=== PATIENT | male | born 1930 | race Caucasian/White ===

== ENCOUNTER 2017-04-05 03:46 | Inpatient (IN) ==
--- NOTE | 2017-03-31 12:56 | EKG Report ---
Test Performed on : 03/31/2017 12:45:57 PM Test Reason : PAT Blood Pressure : / mmHG Vent. Rate : 069 BPM Atrial Rate : 069 BPM P-R Int : 148 ms QRS Dur : 098 ms QT Int : 396 ms P-R-T Axes : 010 -26 003 degrees QTc Int : 424 ms Normal sinus rhythm. Incomplete right bundle branch block Minimal voltage criteria for LVH, may be normal variant Borderline ECG No previous ECGs available Confirmed by John Armas MD ([id number]) on 04/01/2017 7:03:23 AM
[2017-03-31 13:08] LABS: MANUAL DIFF NEEDED? NO; URINE SOURCE CLEAN CATCH
[2017-03-31 13:20] LABS: BASO% 0.5 % (0.0-0.8); EOS# 0.34 X1000 (0.0-0.7); EOS% 3.5 % (0.0-10.0); HEMATOCRIT 41.1 % (42.0-52.0); HEMOGLOBIN 14.1 g/dL (14.0-18.0); IMM GRAN# 0.03 X1000 (0.0-0.04); IMM GRAN% 0.3 % (0.0-0.5); LYMPH% 19.8 % (20.5-51.1); MCHC 34.3 g/dL (33-37); MCV 96.3 FL (81-99); MONO# 0.79 X1000 (0.11-0.59); MONO% 8.2 % (1.7-9.3); MPV 12.7 FL (7.4-10.4); NEUT% 67.7 % (42.2-75.2); PLT 202 X1000 (130-400); RBC 4.27 XMIL (4.7-6.1)
[2017-03-31 13:22] LABS: BILIRUBIN URINE NEGATIVE (NEGATIVE); BLOOD URINE NEGATIVE (NEGATIVE); COLOR YELLOW; GLUCOSE URINE NEGATIVE (NEGATIVE); LEUKOCYTES URINE SMALL (NEGATIVE); NITRITE URINE NEGATIVE (NEGATIVE); PH URINE 5.5; TURBIDITY URINE CLEAR (CLEAR); UROBILINOGEN URINE NORMAL (NORMAL)
[2017-03-31 13:30] LABS: PROTIME 10.5 Seconds (9.2-11.7); PTT 25.2 Seconds (22.0-36.0)
[2017-03-31 13:38] LABS: PROTEIN URINE TRACE mg/dL (NEGATIVE); SP GRAVITY URINE 1.027
[2017-03-31 13:41] LABS: URINE MICRO REVIEW NEEDED? YES
[2017-03-31 14:01] LABS: AGAP 13; BUN 23 mg/dL (8-22); CALCIUM 9.3 mg/dL (8.8-10.2); CHLORIDE 101 mmol/L (98-107); COSMO 286; POTASSIUM 4.2 mmol/L (3.5-5.1); SODIUM 138 mmol/L (136-145); TCO2 24 mmol/L (25-35)
[2017-03-31 14:06] LABS: UR EPITHELIAL CELLS <10 /HPF (<10); URINE BACTERIA NEGATIVE /HPF; URINE RBC <10 /HPF (<10)
[2017-04-05] MEDS ORDERED: REGLAN ONE (11:48)
[2017-04-05] MEDS ORDERED: LYRICA ONE (11:48)
[2017-04-05] MEDS ORDERED: PEPCID ONE (11:48)
[2017-04-05] MEDS ORDERED: COLACE ONE (11:48)
[2017-04-05] MEDS ORDERED: LR 1,000 ML ONE (11:49)
[2017-04-05] MEDS ORDERED: KEFZOL 1 GM/D5W 1 GM/50 ML IVPB ONE (11:49)
[2017-04-05] MEDS ORDERED: CELEBREX ONE (11:49)
[2017-04-05] MEDS ORDERED: MARCAINE 0.25% PF/EPI 1:200,000 ONE (13:53)
[2017-04-05] MEDS ORDERED: TORADOL ONE (13:53)
[2017-04-05] MEDS ORDERED: NEOSPORIN G.U. IRRIGANT ONE (13:54)
[2017-04-05] MEDS ORDERED: SODIUM CHLORIDE 0.9% ONE (13:54)
[2017-04-05] MEDS ORDERED: CYKLOKAPRON 1,000 MG/NS 1,000 MG/100 ML IVPB ONE (13:54)
[2017-04-05] MEDS ORDERED: EXPAREL 1.3% ONE (13:54)
[2017-04-05 15:15] LABS: URINE SOURCE CATH
[2017-04-05 15:20] LABS: BILIRUBIN URINE NEGATIVE (NEGATIVE); BLOOD URINE NEGATIVE (NEGATIVE); COLOR YELLOW; GLUCOSE URINE NEGATIVE (NEGATIVE); LEUKOCYTES URINE SMALL (NEGATIVE); NITRITE URINE NEGATIVE (NEGATIVE); PH URINE 6.5; PROTEIN URINE NEGATIVE (NEGATIVE); SP GRAVITY URINE 1.021; TURBIDITY URINE CLEAR (CLEAR); UROBILINOGEN URINE NORMAL (NORMAL)
[2017-04-05 15:21] LABS: URINE MICRO REVIEW NEEDED? YES
[2017-04-05 15:23] LABS: UR EPITHELIAL CELLS <10 /HPF (<10); URINE BACTERIA 1+ /HPF; URINE RBC <10 /HPF (<10)
[2017-04-05 15:41] LABS: URINE CASTS NONE SEEN; URINE CRYSTALS NONE SEEN
[2017-04-05] MEDS ORDERED: DIPRIVAN 1% ONE (16:44)
[2017-04-05] MEDS ORDERED: FENTANYL ONE (16:44)
[2017-04-05] MEDS: NS 1,000 ML IV SCH (17:00)
[2017-04-05] MEDS ORDERED: NS 1,000 ML ONE (17:02)
[2017-04-05] MEDS ORDERED: MILK OF MAGNESIA PO PRN (17:30)
[2017-04-05] MEDS ORDERED: AMBIEN PO PRN (17:30)
[2017-04-05] MEDS ORDERED: ZOFRAN IV PRN (17:30)
[2017-04-05] MEDS ORDERED: MORPHINE IV PRN (17:30)
[2017-04-05] MEDS: TYLENOL PO SCH (18:09)
[2017-04-05] MEDS: ULTRAM PO SCH (18:09)
[2017-04-05] MEDS ORDERED: PNEUMOVAX 23 IM ONE (19:30)
[2017-04-05] MEDS: CELEBREX PO SCH (20:23)
[2017-04-05] MEDS: PROSCAR PO SCH (20:23)
[2017-04-05] MEDS: COLACE PO SCH (20:23)
[2017-04-05] MEDS: LYRICA PO SCH (20:23)
[2017-04-05] MEDS: FLOMAX PO SCH (20:23)
[2017-04-05] MEDS: PERIDEX MT SCH (20:23)
[2017-04-05] MEDS: TENORMIN PO SCH (20:23)
[2017-04-05] MEDS: NORVASC PO SCH (20:23)
[2017-04-05] MEDS: MYRBETRIQ E.R. PO SCH (20:28)
[2017-04-05] MEDS ORDERED: CYKLOKAPRON 1,000 MG in NS 100 ML IV ONE (20:30)
[2017-04-05] MEDS: KEFZOL 2 GM/D5W 2 GM/50 ML IVPB IV SCH (22:08)
--- NOTE | 2017-04-05 22:32 | OPERATIVE NOTE ---
PROCEDURE DATE: 04/05/2017 PREOPERATIVE DIAGNOSIS: Right hip degenerative joint disease. POSTOP DIAGNOSIS: Right hip degenerative joint disease. PROCEDURE: Right hip total hip arthroplasty using a [facility] size 13 stem with a +0, 36 mm head, a 52 mm hemispherical shell with a 32 mm inside diameter acetabular liner. ANESTHESIA: General. SURGEON: Matthew Shah MD. GUM ROLLING MACHINE TENDER: Toni. SECOND GUM ROLLING MACHINE TENDER: JOVAN Sosa. COMPLICATIONS: None. BLOOD LOSS: Minimal. DRAINS: Hemovac x1 description. DESCRIPTION OF PROCEDURE: The patient was brought to the operative suite and placed in supine position. After successful administration of general anesthesia, the patient placed on the OSI table in the usual position for right hip then right hip was prepped and draped in the usual sterile fashion. A longitudinal incision made beginning 2 cm distal and 2 cm lateral to anterior superior iliac spine extending distally and slightly laterally 8 cm. It is dissected sharply through the skin down to the tensor fascia. Tensor fascia was incised and then dissected bluntly down to the deep tensor fascia, deep tensor fascia was incised, circumflex vessels were electrocauterized exposing the anterior capsule. A T-capsulotomy was performed exposing femoral neck. Femoral neck cut was made with oscillating saw, femoral head was removed power corkscrew. Labrum was resected and calcified labrum was removed with rongeur. Acetabulum serially reamed to a 52 to accept 52 cup. The 52 cup was then driven into place in the proper amount inclination, anteversion and then attention was directed to femur. The femur was externally rotated, extended, adducted and elevated out of the way with hook on OSI bed. The lateral neck was rongeured and the canal was serially broached to a size 13, a size 13 high offset +0 neck length was trialed found be excellent leg length, offset and stability the hip. The trial was removed. Definitive stem was seated on the femur and then the Pires taper was cleaned and dried and then the ceramic 36 mm head was locked on the Pires taper and was reduced. Excellent placement the hip was obtained and fit and fill of the stem was excellent, the offset and leg lengths were excellent as well. The wound was copiously irrigated and dried being certain all bone debris was removed. The hip was copiously infiltrated with Exparel including the posterior capsule, anterior capsule, anterior musculature and subcutaneous tissue. The anterior capsule was repaired with 0 V-Loc running suture and then the drain was placed deep to tensor fascia buried around the stem neck exiting distally and slightly laterally and then the tensor fascia was closed with running 3-0 V-Loc suture, skin edge approximated with 2-0 Vicryl, skin was closed with Prineo. A sterile dressing was placed around the drain. The patient tolerated the procedure well without complication. At the end the procedure all counts correct x2. The patient transferred to recovery room stable condition. cc: Matthew Shah MD
[2017-04-06] MEDS: TYLENOL PO SCH ×4 (04:41→18:09)
[2017-04-06] MEDS: ULTRAM PO SCH ×3 (04:43→18:10)
[2017-04-06] MEDS: NS 1,000 ML IV SCH ×2 (04:43→13:38)
[2017-04-06 05:38] LABS: HEMATOCRIT 33.9 % (42.0-52.0); HEMOGLOBIN 11.4 g/dL (14.0-18.0)
[2017-04-06 05:48] LABS: AGAP 14; BUN 24 mg/dL (8-22); CALCIUM 8.2 mg/dL (8.8-10.2); CHLORIDE 104 mmol/L (98-107); COSMO 284; POTASSIUM 4.7 mmol/L (3.5-5.1); SODIUM 137 mmol/L (136-145); TCO2 19 mmol/L (25-35)
[2017-04-06] MEDS: KEFZOL 2 GM/D5W 2 GM/50 ML IVPB IV SCH (06:20)
[2017-04-06] MEDS: PRILOSEC PO SCH (06:20)
[2017-04-06] MEDS: XARELTO PO SCH (06:20)
[2017-04-06] MEDS ORDERED: OFIRMEV 1000 MG/ISOTONIC SOLN 1,000 MG/100 ML BOTTLE ONE (07:14)
[2017-04-06] MEDS ORDERED: ZOFRAN ONE (07:14)
[2017-04-06] MEDS ORDERED: LR 1,000 ML ONE (07:14)
[2017-04-06] MEDS ORDERED: DECADRON ONE (07:14)
[2017-04-06] MEDS ORDERED: XYLOCAINE-MPF 2% ONE (07:14)
[2017-04-06] MEDS ORDERED: NEO-SYNEPHRINE ONE (07:14)
[2017-04-06] MEDS ORDERED: NS 250 ML ONE (07:14)
[2017-04-06] MEDS ORDERED: EPHEDRINE ONE (07:14)
[2017-04-06] MEDS: PERIDEX MT SCH ×2 (08:02→21:29)
[2017-04-06] MEDS: JANUVIA PO SCH (08:02)
[2017-04-06] MEDS: CELEBREX PO SCH ×2 (08:03→21:30)
[2017-04-06] MEDS: OSCAL 500 + D PO SCH (08:03)
[2017-04-06] MEDS: LYRICA PO SCH ×2 (08:03→21:33)
[2017-04-06] MEDS: IMDUR PO SCH (08:03)
[2017-04-06] MEDS: MICARDIS PO SCH (08:03)
[2017-04-06] MEDS: CENTRUM SILVER PO SCH (08:03)
[2017-04-06] MEDS: COLACE PO SCH ×2 (08:05→21:30)
[2017-04-06] MEDS: CYMBALTA PO SCH (08:05)
[2017-04-06] MEDS: GLUCOPHAGE PO SCH ×2 (08:05→18:11)
[2017-04-06] MEDS: OXY IR PO PRN ×3 (08:26→21:33)
--- NOTE | 2017-04-06 08:26 | PROGRESS NOTE ---
DATE: 04/06/2017 SUBJECTIVE: Shelton Ling is an 87-year-old male who is postoperative day 1 from a right anterior total hip arthroplasty. He has no complaints. OBJECTIVE: He is a well-nourished male. He is alert, oriented, and cooperative on exam. His vital signs are stable. He is afebrile. His wound is clean, dry, intact. ASSESSMENT: Stable postoperative visit from a right total hip arthroplasty. PLAN: Will continue working on physical therapy with him. He will likely go to rehab later in the week. cc: Matthew Shah MD
[2017-04-06] MEDS ORDERED: DECADRON IV ONE (09:00)
[2017-04-06] MEDS: FLOMAX PO SCH (21:30)
[2017-04-06] MEDS: MYRBETRIQ E.R. PO SCH (21:30)
[2017-04-06] MEDS: NORVASC PO SCH ×2 (21:30)
[2017-04-06] MEDS: TENORMIN PO SCH ×2 (21:30)
[2017-04-06] MEDS: PROSCAR PO SCH (21:34)
[2017-04-07] MEDS: ULTRAM PO SCH ×4 (04:58→21:00)
[2017-04-07] MEDS: TYLENOL PO SCH ×4 (04:59→23:23)
[2017-04-07 06:01] LABS: HEMATOCRIT 25.5 % (42.0-52.0); HEMOGLOBIN 8.4 g/dL (14.0-18.0)
[2017-04-07] MEDS: PRILOSEC PO SCH (06:17)
[2017-04-07] MEDS: XARELTO PO SCH (06:18)
[2017-04-07] MEDS: JANUVIA PO SCH (09:50)
[2017-04-07] MEDS: CELEBREX PO SCH ×2 (09:50→23:23)
[2017-04-07] MEDS: GLUCOPHAGE PO SCH ×2 (09:50→17:02)
[2017-04-07] MEDS: LYRICA PO SCH (09:50)
[2017-04-07] MEDS: PERIDEX MT SCH ×2 (09:50→23:22)
[2017-04-07] MEDS: IMDUR PO SCH (09:50)
[2017-04-07] MEDS: OXY IR PO PRN (09:50)
[2017-04-07] MEDS: COLACE PO SCH ×2 (09:50→23:23)
[2017-04-07] MEDS: OSCAL 500 + D PO SCH (09:51)
[2017-04-07] MEDS: CENTRUM SILVER PO SCH (09:51)
[2017-04-07] MEDS: CYMBALTA PO SCH (09:51)
[2017-04-07] MEDS: MICARDIS PO SCH (09:51)
--- NOTE | 2017-04-07 13:12 | PROGRESS NOTE ---
DATE: 04/07/2017 SUBJECTIVE: Shelton Ling is am 87-year-old male who is postoperative day 2 from a right anterior total hip arthroplasty. He complains of increased pain today but otherwise is doing well. OBJECTIVE: He is a well-developed, well-nourished male. He is alert and cooperative. His wound is clean, dry, intact without sign of infection. His leg is neurovascularly intact. ASSESSMENT: Stable right total hip arthroplasty. PLAN: We will continue working on range of motion and ambulation. He will likely go to rehab tomorrow. cc: Matthew Shah MD
[2017-04-07] MEDS: NORVASC PO SCH (21:00)
[2017-04-07] MEDS: TENORMIN PO SCH (21:00)
[2017-04-07] MEDS: MYRBETRIQ E.R. PO SCH (23:23)
[2017-04-07] MEDS: PROSCAR PO SCH (23:23)
[2017-04-07] MEDS: FLOMAX PO SCH (23:23)
[2017-04-08] MEDS: LYRICA PO SCH ×3 (04:31→22:03)
[2017-04-08 06:03] LABS: HEMATOCRIT 22.7 % (42.0-52.0); HEMOGLOBIN 7.5 g/dL (14.0-18.0)
[2017-04-08] MEDS: TYLENOL PO SCH ×4 (06:25→23:21)
[2017-04-08] MEDS: XARELTO PO SCH (06:26)
[2017-04-08] MEDS: PRILOSEC PO SCH (06:26)
[2017-04-08] MEDS: ULTRAM PO SCH ×4 (06:26→23:22)
--- NOTE | 2017-04-08 09:20 | PROGRESS NOTE ---
DATE: 04/08/2017 SUBJECTIVE: Mr. Ling is a 89-year-old male, who is postoperative day 3 from a right anterior total hip arthroplasty. He complains of weakness and low energy, but otherwise he is doing well. OBJECTIVE: He is well developed, well nourished male. He is alert and cooperative with the exam. His conjunctiva is noted to be slightly pale. His wound is clean, dry, and intact without signs of infection. His leg is neurovascularly intact. His hemoglobin is 9.5, his hematocrit is 22.7. ASSESSMENT: Stable right total hip arthroplasty and anemia. PLAN: We will transfuse 2 units of packed red blood cells and we will continue working on range of motion and ambulation. He will likely go to rehab tomorrow, pending the status of his anemia. Dictated by CHRISTOPHER De Souza for Matthew Shah MD cc: CHRISTOPHER De Souza MD
[2017-04-08] MEDS: GLUCOPHAGE PO SCH ×2 (11:54→18:33)
[2017-04-08] MEDS: JANUVIA PO SCH (11:54)
[2017-04-08] MEDS: CELEBREX PO SCH ×2 (11:54→22:04)
[2017-04-08] MEDS: CENTRUM SILVER PO SCH (11:54)
[2017-04-08] MEDS: OSCAL 500 + D PO SCH (11:54)
[2017-04-08] MEDS: COLACE PO SCH ×2 (11:54→22:04)
[2017-04-08] MEDS: IMDUR PO SCH (11:55)
[2017-04-08] MEDS: MICARDIS PO SCH (11:55)
[2017-04-08] MEDS: CYMBALTA PO SCH (11:55)
[2017-04-08] MEDS ORDERED: NS 500 ML ONE (12:24)
[2017-04-08] MEDS: PERIDEX MT SCH ×2 (12:40→22:05)
[2017-04-08] MEDS: NORVASC PO SCH (22:03)
[2017-04-08] MEDS: FLOMAX PO SCH (22:04)
[2017-04-08] MEDS: MYRBETRIQ E.R. PO SCH (22:04)
[2017-04-08] MEDS: PROSCAR PO SCH (22:04)
[2017-04-08] MEDS: TENORMIN PO SCH (22:05)
[2017-04-09] MEDS: ULTRAM PO SCH (06:11)
[2017-04-09] MEDS: XARELTO PO SCH (06:14)
[2017-04-09] MEDS: PRILOSEC PO SCH (06:14)
[2017-04-09] MEDS: TYLENOL PO SCH (06:14)
[2017-04-09 08:24] VITALS: BP 125/63
--- NOTE | 2017-04-09 08:32 | DISCHARGE SUMMARY ---
ADMISSION DATE: 04/05/2017 DISCHARGE DATE: 04/09/2017 DISCHARGE DIAGNOSES: 1. Right hip degenerative joint disease. 2. Status post right anterior total hip arthroplasty. 3. Acute blood loss anemia. DISCHARGE MEDICATIONS: See discharge medication list. DISPOSITION: Patient discharged to rehab. INSTRUCTIONS: Instructions for a right total hip arthroplasty protocol. Instructed to return for any signs or symptoms of infection, deep venous thrombosis. Instructed to return to see Dr. Shah next . HOSPITAL COURSE: On the day of admission, the patient underwent a right anterior total hip arthroplasty. His postoperative course was complicated only by acute blood loss anemia treated with transfusion x 2. At discharge he is afebrile, tolerating regular diet, ambulating well in physical therapy. His wound is clean, dry, intact without sign of infection. He is discharged to rehab in stable condition with instructions to follow up as described above. cc: Matthew Shah MD [facility]
[2017-04-09] MEDS: COLACE PO SCH (08:52)
[2017-04-09] MEDS: GLUCOPHAGE PO SCH (08:53)
[2017-04-09] MEDS: CELEBREX PO SCH (08:53)
[2017-04-09] MEDS: MICARDIS PO SCH (08:53)
[2017-04-09] MEDS: CYMBALTA PO SCH (08:53)
[2017-04-09] MEDS: IMDUR PO SCH (08:53)
[2017-04-09] MEDS: PERIDEX MT SCH (08:54)
[2017-04-09] MEDS: OSCAL 500 + D PO SCH (08:54)
[2017-04-09] MEDS: JANUVIA PO SCH (08:54)
[2017-04-09] MEDS: CENTRUM SILVER PO SCH (08:54)
--- NOTE | 2017-04-09 10:09 | Diag Imaging Result Doc PS360 ---
EXAM: CHEST-PORTABLE INDICATION: rehab TECHNIQUE: One view COMPARISON: None. FINDINGS: The lungs are grossly clear. There is no discrete pleural fluid collection. The cardiomediastinal silhouette and central vasculature are grossly unremarkable. IMPRESSION: No evidence of acute pathology. Electronically signed by Micah Florian 04/09/2017 10:07 AM
== END 2017-04-09 11:10 ==
LOC: SURHOLD 03:46 → 4N 16:04
PROVIDERS: ADMIT Orthopaedic Surgery; ATTEND Orthopaedic Surgery

== ENCOUNTER 2019-03-29 07:06 | Day surgery (SDC) ==
[2019-03-22 15:53] LABS: HEMATOCRIT 36.3 % (42.0-52.0); HEMOGLOBIN 12.2 g/dL (14.0-18.0); MCHC 33.6 g/dL (33-37); MCV 95.3 FL (81-99); MPV 12.9 FL (7.4-10.4); RBC 3.81 XMIL (4.7-6.1); RDW 13.8 % (11.5-14.5); WBC 8.7 X1000 (4.8-10.8)
[2019-03-22 16:13] LABS: INR 0.95; PROTIME 13.5 Seconds (11.0-16.0)
[2019-03-22 16:14] LABS: PTT 25.7 Seconds (22.3-41.8)
[2019-03-22 16:42] LABS: CREATININE 1.2 mg/dL (0.7-1.2); POTASSIUM 4.1 mmol/L (3.5-5.1)
--- NOTE | 2019-03-28 18:56 | HISTORY AND PHYSICAL ---
HISTORY OF PRESENT ILLNESS: This is an 89-year-old male with a long-standing history of BPH, who went into urinary retention. He has been on finasteride and Flomax, as well as trospium. He has attempted to pass a voiding trial and failed so. He underwent cystoscopy on 03/22/2019 which revealed significant prostatic hypertrophy with obstruction. He was counseled on chronic Neri catheter intermittent catheterization versus TURP and wants to proceed with definitive intervention. PAST MEDICAL HISTORY: Hypertension, BPH, coronary artery disease, diabetes, GERD, neuropathy. PAST SURGICAL HISTORY: Shoulder surgery, elbow surgery, back surgery. HOME MEDICATIONS: Aspirin, atenolol, Cymbalta, finasteride, Flomax, ISMN, Januvia, Lyrica, metformin, [place], Norvasc, omeprazole, telmisartan. ALLERGIES: No known drug allergies. SOCIAL HISTORY: Denies tobacco, alcohol, or illicit drug use. FAMILY HISTORY: Negative for malignancies. PHYSICAL EXAMINATION: GENERAL: No acute distress. HEENT: Normocephalic, atraumatic. CARDIOVASCULAR: Regular rhythm. PULMONARY: Bilateral breath sounds. ABDOMEN: Nontender, nondistended. : Normal external male genitalia. ASSESSMENT: This is an 89-year-old male with significant benign prostatic hypertrophy, who has been in urinary retention despite medical therapy. He again was counseled on alternatives including observation, indwelling Neri catheter, intermittent self catheterization, suprapubic tube, and TURP. He wants to proceed with bipolar transurethral resection of the prostate. He was counseled on the risks of the procedure including, but not limited to, bleeding, infection, injury to adjacent structures, persistent urinary retention, small risk of postoperative urinary incontinence, and risk of erectile dysfunction, as well as long-term complications such as bladder neck contracture. We discussed that he may have prostatic regrowth and need further intervention in the future. He voiced understanding and wants to proceed. PLAN: Bipolar transurethral resection of the prostate. cc: Israel Tay MD
[2019-03-29] MEDS ORDERED: LR 1,000 ML ONE (07:28)
[2019-03-29] MEDS ORDERED: KEFZOL 1 GM/D5W 2 GM/100 ML IVPB ONE (07:28)
[2019-03-29] MEDS ORDERED: PEPCID ONE (07:28)
--- NOTE | 2019-03-29 08:07 | EKG Report ---
Test Performed on : 03/29/2019 07:27:04 AM Test Reason : PREOP Blood Pressure : / mmHG Vent. Rate : 099 BPM Atrial Rate : 099 BPM P-R Int : 130 ms QRS Dur : 076 ms QT Int : 332 ms P-R-T Axes : 007 -32 036 degrees QTc Int : 426 ms Normal sinus rhythm. Left axis deviation Abnormal ECG When compared with ECG of 26-APR-2017 16:59, No significant change was found Confirmed by Golden FAN, Patric Pepe ([id number]) on 03/29/2019 10:23:54 AM
[2019-03-29] MEDS ORDERED: DIPRIVAN 1% ONE (09:31)
[2019-03-29] MEDS ORDERED: XYLOCAINE-MPF 2% ONE (09:32)
[2019-03-29] MEDS ORDERED: FENTANYL ONE ×2 (09:32→10:39)
[2019-03-29] MEDS ORDERED: OFIRMEV 1000 MG/ISOTONIC SOLN 1,000 MG/100 ML BOTTLE ONE (10:07)
[2019-03-29] MEDS ORDERED: LOPRESSOR ONE (10:20)
[2019-03-29] MEDS ORDERED: TORADOL ONE (10:41)
[2019-03-29] MEDS ORDERED: ZOFRAN ONE (10:41)
[2019-03-29] MEDS ORDERED: B & O 15A SUPP ONE (12:22)
[2019-03-29] MEDS ORDERED: NS 1,000 ML ONE (12:45)
[2019-03-29] MEDS ORDERED: MORPHINE IV PRN (12:58)
[2019-03-29] MEDS ORDERED: NORCO-5 PO PRN (13:00)
[2019-03-29] MEDS ORDERED: LABETALOL IV PRN (13:00)
[2019-03-29] MEDS ORDERED: ZOFRAN IV PRN (13:00)
[2019-03-29] MEDS ORDERED: PHENERGAN IV PRN (13:00)
[2019-03-29] MEDS ORDERED: NORCO-7.5 PO PRN (13:00)
[2019-03-29] MEDS ORDERED: SODIUM CHLORIDE 0.9% INJ PRN (13:00)
[2019-03-29] MEDS ORDERED: PHENERGAN PO PRN (13:00)
[2019-03-29] MEDS ORDERED: NORCO-10 PO PRN (13:00)
[2019-03-29] MEDS ORDERED: OFIRMEV 1000 MG/ISOTONIC SOLN 1,000 MG/100 ML BOTTLE IV PRN (13:00)
[2019-03-29] MEDS: NS 1,000 ML IV SCH ×2 (13:45→18:40)
[2019-03-29] MEDS ORDERED: D50W SYRINGE IV PRN (14:15)
[2019-03-29] MEDS: HUMALOG SUBQ SCH ×2 (16:13→21:19)
[2019-03-29] MEDS ORDERED: KEFZOL 2 GM/D5W 2 GM/50 ML IVPB IV SCH ×2 (17:45→18:30)
[2019-03-29] MEDS: GLUCOPHAGE PO SCH (18:11)
[2019-03-29] MEDS: ULTRAM PO SCH ×2 (18:11→21:17)
[2019-03-29] MEDS: KEFZOL 2 GM/D5W 2 GM/50 ML IVPB IV SCH (18:38)
--- NOTE | 2019-03-29 19:56 | PROGRESS NOTE ---
DATE: 03/29/2019 SUBJECTIVE: Mr. Ling states he is feeling well. He has had a bladder spasm which has subsided with tramadol. He denies significant pain. PHYSICAL EXAMINATION: Vital Signs: His pulse is 76, his BP is 156/85. General: No acute distress. Abdomen: Nontender, nondistended. Genitourinary: Neri catheter in place with continuous bladder irrigation. Very light pink urine without clots noted. ASSESSMENT AND PLAN: An 89-year-old male with urinary retention and significant BPH, who is status post transurethral resection of the prostate with bipolar loop today. He is doing well. His son is present at bedside. I have discussed with the patient postoperative expectations including blood in his urine for up to 2 weeks. We discussed hydration. We discussed that he may not pass voiding trial tomorrow and may require catheter for several days prior to another voiding trial. I have advised that he discontinue finasteride and trospium, and continue Flomax 0.4 mg at bedtime just for 7 days in order to help decrease postoperative edema. I have advised today restart his aspirin 3 days after discharge on 04/02/2019. PLAN: 1. Continue decreasing bladder irrigation rate. 2. If no acute events overnight, we will plan to remove Neri catheter tomorrow 6 a.m. and discharge home pending successful voiding and acceptable postvoid residual less than 300 mL. 3. I have discussed the patient with my colleague Dr. Carvajal who will round him in the morning as I will not be available. cc: Israel Tay MD
[2019-03-29] MEDS ORDERED: FLOMAX PO SCH (21:00)
[2019-03-29] MEDS: LYRICA PO SCH (21:17)
[2019-03-29] MEDS: PERIDEX MT SCH (21:17)
[2019-03-29] MEDS: COLACE PO SCH (21:18)
[2019-03-30] MEDS: KEFZOL 2 GM/D5W 2 GM/50 ML IVPB IV SCH ×2 (02:40→10:13)
[2019-03-30] MEDS: NS 1,000 ML IV SCH (03:10)
[2019-03-30] MEDS: ULTRAM PO SCH ×2 (05:02→10:13)
[2019-03-30 06:38] LABS: HEMOGLOBIN 11.3 g/dL (14.0-18.0); MCH 31.9 PG (27-31); MCHC 33.2 g/dL (33-37); MPV 12.6 FL (7.4-10.4); RBC 3.54 XMIL (4.7-6.1); RDW 13.6 % (11.5-14.5); WBC 9.22 X1000 (4.8-10.8)
[2019-03-30 07:07] LABS: AGAP 13; BUN 20 mg/dL (8-22); CALCIUM 7.8 mg/dL (8.8-10.2); CHLORIDE 107 mmol/L (98-107); COSMO 283; CREATININE 0.9 mg/dL (0.7-1.2); ESTIMATED GFR > 60; GLUCOSE 123 mg/dL (70-104); POTASSIUM 3.7 mmol/L (3.5-5.1); SODIUM 140 mmol/L (136-145); TCO2 20 mmol/L (25-35)
[2019-03-30] MEDS ORDERED: GLUCOTROL PO SCH (08:00)
[2019-03-30 08:09] VITALS: BP 133/88
[2019-03-30] MEDS ORDERED: PRILOSEC PO SCH (09:00)
[2019-03-30] MEDS ORDERED: COZAAR PO SCH (09:00)
[2019-03-30] MEDS ORDERED: CYMBALTA PO SCH (09:00)
--- NOTE | 2019-03-30 09:42 | PROGRESS NOTE ---
DATE: 03/30/2019 SUBJECTIVE: Postop day 1 from cystoscopy, transurethral resection of prostate by Dr. Tay. The patient has been doing well overnight. His CBI was weaned off. His catheter was removed this morning. The patient has not voided yet. He is having minimal to no pain. Denies any dysuria or burning. He said he slept relatively well. He was awoken several times by nursing, but does not feel overly fatigued. Denies nausea or vomiting. Tolerating p.o. intake last night. OBJECTIVE: Vital signs: Temperature 99.1 degrees, heart rate 88, blood pressure 107/68, oxygen saturation 98% on 1 L nasal cannula. General: No acute distress, resting on the bed. Alert and oriented x3. Respiratory: Good respiratory effort without audible wheezing or rales. Nasal cannula in place with no shortness of breath. Abdomen: Soft, nontender, nondistended. No palpable masses. Genitourinary: No suprapubic tenderness. No CVA tenderness. Normal phallus. Small amount of blood present at the meatus without active drainage. LABORATORY DATA: White blood cell count 9.2, hemoglobin 11.3, hematocrit 34.0, platelets 182,000. Sodium 140, potassium 3.7, chloride 107, bicarb 20, BUN 20, creatinine 0.9, glucose 123. ASSESSMENT AND PLAN: Mr. Ling is an 89-year-old with chronic obstructive pulmonary disease, hypertension, benign prostatic hypertrophy, diabetes, gastroesophageal reflux disease, coronary artery disease, who presents postoperative day 1 from transurethral resection of prostate. The patient did well from an operative standpoint. His catheter was removed this morning and patient is awaiting urination. All his labs are within normal limits with white blood cell count of 9, creatinine 0.9. Clinically appears to be doing well. We will plan for him to have a voiding trial today. Encourage him to remain hydrated. The patient will remain on Flomax 0.4 mg until his current prescription runs out. If the patient is able to void, we will obtain a postvoid residual. As long as this number is low, likely discharge home. Relayed this message to the patient as well as patient's son. Encouraged him to be as ambulatory as possible. Patient does have some limitations due to orthopedic issues. The patient uses a walker at home. If patient is not able to urinate, will have to reinsert catheter and have him follow-up next week in the office. As long as patient meets goals of discharge, we will hopefully be able to discharge later today. cc: MD Israel Duarte MD MTDD
[2019-03-30] MEDS: COLACE PO SCH (10:14)
[2019-03-30] MEDS: GLUCOPHAGE PO SCH (10:14)
[2019-03-30] MEDS: LYRICA PO SCH (10:15)
[2019-03-30] MEDS: PERIDEX MT SCH (10:15)
[2019-03-30] MEDS: HUMALOG SUBQ SCH ×2 (10:32→10:50)
--- NOTE | 2019-04-25 13:33 | OPERATIVE NOTE ---
PROCEDURE DATE: 03/29/2019 SURGEON: Israel Tay MD PREOPERATIVE DIAGNOSIS: 1. Benign prostatic hypertrophy. 2. Urinary retention. POSTOP DIAGNOSIS: 1. Benign prostatic hypertrophy. 2. Urinary retention. PROCEDURE: Bipolar transurethral resection of the prostate with the loop. INDICATIONS: 89-year-old male with longstanding history of BPH, who has been on finasteride and Flomax and went into urinary retention. He had failed voiding trials. He underwent cystoscopy which revealed significant prostatic hypertrophy with obstruction. Now he desires TURP. FINDINGS: Significant bilobar prostatic hypertrophy. DESCRIPTION OF PROCEDURE: After obtaining informed consent, patient brought to the operating room. Perioperative antibiotics and laryngeal mask anesthesia were administered. He was placed in lithotomy position, prepped and draped sterile fashion. A 21-Stateless rigid cystoscope was used to gain access to the bladder, which was then examined systematic fashion. His prostate had significant prostatic hypertrophy with obstruction. His bladder showed moderate trabeculations. No evidence sizable diverticula, no mucosal lesions and no stones noted within the bladder lumen. We removed the cystoscope and introduced a 25-Stateless rigid resectoscope. Bipolar gyrus loop was used to resect the adenoma from the level of bladder neck to the level of the verumontanum 1st at 6 o'clock down to the level of the capsule depth fernandez. We then resected adenoma in a clockwise and counterclockwise fashion. Ellik was used to evacuate the chips which were sent off for pathology. Hemostasis obtained along the way. Repeat examination revealed adequate hemostasis and no evidence of sizable chips remaining. The resectoscope was then removed and a 22-Stateless, 3- way Neri catheter was introduced with 30 mL of sterile water instilled into the balloon. The catheter was placed in gentle traction and connected to continuous bladder irrigation normal saline. The patient was extubated, taken to PACU for further recovery. ESTIMATED BLOOD LOSS: None. COMPLICATIONS: None. SPECIMENS: Prostate chips. DRAINS: 22-Stateless, 3-way Neri catheter. DISPOSITION: To PACU, subsequently floor for observation. cc: Israel Tay MD
== END 2019-03-30 14:27 | disposition home or self-care (01) ==
LOC: OR 07:06 → 4N 07:06 → OR 03-30 14:27
PROVIDERS: ATTEND Urology
PROC: UR.TURP (2019-03-29 09:45)
CPT/HCPCS: 80048; 82948; 85027; 85610; 85730; 88305; 88313; 93005; 93010; 94761; 94799; A9270; J0131; J0690; J1815; J1885; J2405; J3010; J7030; J7120; XXXXX

== ENCOUNTER 2019-04-26 18:02 | Inpatient (IN) ==
[2019-04-26] MEDS ORDERED: NS 500 ML IV ONE (19:20)
--- NOTE | 2019-04-26 20:10 | Diag Imaging Result Doc PS360 ---
EXAM: CHEST-PORTABLE 04/26/2019 HISTORY: ams TECHNIQUE: AP portable at 1949 COMMENT: There are calcifications in the thoracic aorta. There is a skin fold over the left chest. There may be COPD. There are multiple healing rib fractures posteriorly on the right which were not present on 04/26/2017. The heart size and pulmonary vascularity are stable in appearance. IMPRESSION: No evidence of acute disease. Electronically signed by Yury Diaz 04/26/2019 8:07 PM
--- NOTE | 2019-04-26 20:17 | Diag Imaging Result Doc PS360 ---
EXAM: CT HEAD W/O CONTRAST 04/26/2019 HISTORY: ams TECHNIQUE: This exam was performed using automated exposure control, adjustment of mA or kV according to patient size, and/or use of iterative reconstruction technique. COMMENT: There are calcifications in the left vertebral and both internal carotid arteries. There are patchy lucencies in the periventricular white matter of both hemispheres consistent with chronic microvascular ischemic white matter change. There is no evidence of mass effect, bleed, or abnormal extra-axial fluid collection. The calvarium is intact. There is a mucous retention cyst in the left frontal sinus. Otherwise the paranasal sinuses are clear. IMPRESSION: Chronic ischemic microvascular changes. No evidence of acute intracranial disease. Electronically signed by Yury Diaz 04/26/2019 8:15 PM
[2019-04-26 20:20] LABS: BASO# 0.04 X1000 (0.0-0.2); BASO% 0.3 % (0.0-0.8); EOS# 0.23 X1000 (0.0-0.7); EOS% 1.8 % (0.0-10.0); HEMATOCRIT 35.4 % (42.0-52.0); HEMOGLOBIN 12.6 g/dL (14.0-18.0); IMM GRAN# 0.18 X1000 (0.0-0.04); IMM GRAN% 1.4 % (0.0-0.5); LYMPH# 1.29 X1000 (1.2-3.4); LYMPH% 10.4 % (20.5-51.1); MCH 31.3 PG (27-31); MCHC 35.6 g/dL (33-37); MCV 88.1 FL (81-99); MONO# 1.19 X1000 (0.11-0.59); MONO% 9.6 % (1.7-9.3); MPV 12.3 FL (7.4-10.4); NEUT# 9.51 X1000 (1.4-6.5); NEUT% 76.5 % (42.2-75.2); PLT 431 X1000 (130-400); RBC 4.02 XMIL (4.7-6.1); RDW 12.8 % (11.5-14.5); WBC 12.44 X1000 (4.8-10.8)
[2019-04-26] MEDS ORDERED: ROCEPHIN 2 GM in NS 50 ML IV ONE (20:28)
[2019-04-26] MEDS ORDERED: ZITHROMAX 500 MG/NS 500 MG/250 ML IVPB IV ONE (20:28)
[2019-04-26] MEDS ORDERED: NS 1,000 ML, NS 1,000 ML IV ONE ×2 (20:43)
[2019-04-26] MEDS ORDERED: NS 1,000 ML ONE (20:51)
[2019-04-26 20:53] LABS: ESTIMATED GFR > 60
[2019-04-26 20:54] LABS: AGAP 21; ALB/GLOB RATIO 1.4; ALBUMIN 3.4 g/dL (3.5-5.0); ALKALINE PHOSPHATASE 98 U/L (32-122); BUN 28 mg/dL (8-22); CALCIUM 9.3 mg/dL (8.8-10.2); CHLORIDE 87 mmol/L (98-107); COSMO 255; CREATININE 1.1 mg/dL (0.7-1.2); GLUCOSE 128 mg/dL (70-104); GOT 15 U/L (10-34); GPT 10 U/L (10-44); POTASSIUM 5.2 mmol/L (3.5-5.1); SODIUM 123 mmol/L (136-145); TCO2 15 mmol/L (25-35); TOTAL BILIRUBIN 0.26 mg/dL (0.20-1.00); TOTAL PROTEIN 5.9 g/dL (6.3-8.3)
[2019-04-26] MEDS ORDERED: NS 1,000 ML IV ONE (21:00)
[2019-04-26 21:40] LABS: URINE SOURCE CATH
[2019-04-26 21:42] LABS: BILIRUBIN URINE NEGATIVE (NEGATIVE); BLOOD URINE LARGE (NEGATIVE); COLOR YELLOW; GLUCOSE URINE NEGATIVE (NEGATIVE); KETONE URINE 10 mg/dL (NEGATIVE); LEUKOCYTES URINE LARGE (NEGATIVE); NITRITE URINE NEGATIVE (NEGATIVE); PH URINE 5.5; PROTEIN URINE 50 mg/dL (NEGATIVE); SP GRAVITY URINE 1.019; TURBIDITY URINE HAZY (CLEAR); UROBILINOGEN URINE NORMAL (NORMAL)
[2019-04-26 21:43] LABS: UR EPITHELIAL CELLS <10 /HPF (<10); URINE BACTERIA NEGATIVE /HPF; URINE RBC TNTC /HPF (<10); URINE WBC TNTC /HPF (<10)
[2019-04-26 22:11] LABS: BLOOD TYPE ARTERIAL; SAMPLE BLOOD
[2019-04-26 22:12] LABS: ALLEN TEST YES; BE -6.3 mmoll (-3.0-3.0); METHB 0.8 % (0.0-1.5); MODALITY ROOM AIR; O2(CT) 15.7 mL/dL (15.0-23.0); O2HB 96.9 % (95.0-99.0); PCO2(98.6) 25 mmHg (35-45); PO2(98.6) 119 mmHg (60-100); SAO2 98.5 % (95.0-100.0); THB 11.4 g/dL (11.5-17.4); pH(98.6) 7.43 (7.35-7.45)
[2019-04-26 23:08] LABS: HEMOGLOBIN A1C 6.2 % (4.8-6.0)
[2019-04-26 23:10] LABS: INR 1.07; PROTIME 14.8 Seconds (11.0-16.0)
[2019-04-26 23:11] LABS: PTT 29.4 Seconds (22.3-41.8)
--- NOTE | 2019-04-27 00:29 | HISTORY AND PHYSICAL ---
CHIEF COMPLAINT: Altered mental status. HISTORY OF PRESENT ILLNESS: This is an 89-year-old male who is very pleasantly confused, has a longstanding history of BPH. I believe he just underwent a TURP by Dr. Tay. He followed up with Dr. Tay yesterday in his office. Everything seemed to be going well. He is at [facility] for the time being. After leaving Dr. Tay's office, he became altered and having hallucinations visual and auditory and speaking to people who were not there, per the son. Tonight, he is oriented to person and time, disoriented to place and situation. He is very pleasantly confused. He believes that he is attending a . Initial workup in the emergency room shows that the patient is fluid volume depleted as well as having leukocyte esterase positive and too numerous to count WBCs in his urine. He will be admitted for further evaluation and treatment. PAST MEDICAL HISTORY: Hypertension, BPH, coronary artery disease, diabetes, GERD and neuropathy. PREVIOUS SURGICAL HISTORY: Shoulder surgery, elbow surgery, back surgery and TURP. SOCIAL HISTORY: No tobacco, alcohol, illicit drugs. Normally lives at home with his but he is at rehab at the time, has been since the procedure. FAMILY HISTORY: Mother had multiple myeloma or some type of bone cancer, per the son. Father had coronary artery disease and from myocardial infarction as well as diabetes mellitus type 1. ALLERGIES: No known drug allergies. HOME MEDICATIONS: A list of home medications has not been verified. An order was placed for Nursing to reconcile home medications. I do know that he takes Cymbalta and Ultram. REVIEW OF SYSTEMS: Fourteen-point review of systems was attempted with the patient. He denies any complaint at this time. Pertinent positives are listed above in the HPI. PHYSICAL EXAMINATION: VITAL SIGNS: Temperature 98.6, pulse 98, respirations 20-27, blood pressure 108/91, oxygen saturation 97% on room air. GENERAL: Very pleasantly confused 89-year-old male oriented to person and time, disoriented to situation and place. He is in no acute distress. HEENT: Head is atraumatic, normocephalic. Pupils equal, round, reactive to light. Extraocular eye movement is intact. Sclerae are anicteric. Conjunctiva is pale. Oral mucosa is dry. NECK: Supple. No JVD. No thyromegaly. Trachea is midline. No cervical lymphadenopathy. CARDIAC: S1, S2 appreciated. Patient is tachycardic. No murmurs, gallops, rubs. LUNGS: Clear to auscultation bilaterally. No rhonchi, wheezes, rales. Symmetric rise and fall with respirations. ABDOMEN: Soft, nondistended, nontender. Bowel sounds present all 4 quadrants, normoactive. No pulsatile mass. No organomegaly. EXTREMITIES: No clubbing, cyanosis or edema. One-plus pedal pulses bilaterally. GENITOURINARY: No bladder distention. Patient has indwelling Neri catheter. Otherwise deferred. NEUROLOGICAL: Oriented to person and time. Disoriented to place and situation. Cranial nerves 2- 12 appear to be grossly intact. DIAGNOSTIC DATA: CT of his head shows chronic ischemic microvascular changes. No acute intracranial process. Chest x-ray: Mild changes related to COPD. There are multiple healing rib fractures on the right. No acute process noted. LABORATORY DATA: WBC 12.44. Hemoglobin 12.6. Hematocrit 35.4. Platelet count 431. ABG: pH 7.43, PCO2 of 25, PO2 of 119, bicarbonate 20. This was on room air. Sodium 123. Potassium 5.2. Chloride 87. Carbon dioxide 15. BUN 28. Creatinine 1.1. Glucose 128. Plasma lactate 5.7. Urine: Leukocyte esterase positive, too numerous to count WBCs, positive for hematuria. ASSESSMENT AND PLAN: 1. Encephalopathy. This is likely metabolic or infectious in nature but cannot exclude toxic as the patient is on Cymbalta and Ultram. He also was noted to have hyponatremia and a urinary tract infection which can both contribute to his altered mental status. We will rehydrate. We will treat with IV antibiotics. Urine cultures are pending. Hold [employer]MA[employer] depressants at this time. 2. Hyponatremia. We will hold his Cymbalta and Ultram. He was bolused in the emergency room. We will continue gentle fluid rehydration, check BMP 6 hours from last one as well as in the morning. We will be mindful of raising the sodium too quickly for fear of CPM. 3. Fluid volume depletion. The patient is prerenal. He has been given fluids in the emergency room. He remains tachycardic. We will continue gentle fluid rehydration. Recheck laboratory data in a.m. 4. History of hypertension. Patient is normotensive to hypotensive at this time related to his fluid volume status. We will hold any antihypertensives at this time. We will restart home medications once they have been reconciled and are appropriate. 5. Urinary tract infection. As noted, we will treat the patient with Maxipime at this time. Continue to evaluate labs and reevaluate urine culture which is pending. Further recommendations per patient clinical course. Dictated by JOVAN Damon for Micaela Smith MD cc: JOVAN Damon MD Independent exam performed at bedside notable for only orientation to place and person, + xerostomia with decreased turgor and pulse volume. No asterixis,but only mild tremor. Agree with cautious replacement IVF. Hyponatremia like due to SSRI. Await Cx while empiric abx tx with Maxipime to cover Pseudomonas. MTDD
[2019-04-27] MEDS ORDERED: ZOFRAN IV PRN (00:35)
[2019-04-27] MEDS: NS 1,000 ML IV SCH ×2 (01:49→15:31)
[2019-04-27 03:09] LABS: AGAP 12; BUN 23 mg/dL (8-22); CALCIUM 7.7 mg/dL (8.8-10.2); CHLORIDE 97 mmol/L (98-107); COSMO 260; CREATININE 0.8 mg/dL (0.7-1.2); ESTIMATED GFR > 60; GLUCOSE 155 mg/dL (70-104); POTASSIUM 4.7 mmol/L (3.5-5.1); SODIUM 126 mmol/L (136-145); TCO2 17 mmol/L (25-35)
[2019-04-27] MEDS: PRILOSEC PO SCH (06:02)
[2019-04-27] MEDS: HUMALOG SUBQ SCH ×4 (06:02→20:31)
[2019-04-27] MEDS ORDERED: HUMALOG SUBQ SCH (07:00)
--- NOTE | 2019-04-27 07:02 | EKG Report ---
Test Performed on : 04/27/2019 06:55:09 AM Test Reason : chest pain Blood Pressure : / mmHG Vent. Rate : 083 BPM Atrial Rate : 083 BPM P-R Int : 150 ms QRS Dur : 088 ms QT Int : 376 ms P-R-T Axes : 012 -47 018 degrees QTc Int : 441 ms Sinus rhythm. with premature atrial complexes. Left anterior fascicular block Nonspecific ST abnormality Abnormal ECG When compared with ECG of 26-APR-2019 18:50, (Unconfirmed) premature atrial complexes. are now present Confirmed by Chilo FAN, Jaquan Garay ([id number]) on 04/27/2019 4:19:35 PM
[2019-04-27 07:13] LABS: BASO# 0.04 X1000 (0.0-0.2); BASO% 0.4 % (0.0-0.8); EOS# 0.41 X1000 (0.0-0.7); EOS% 4.5 % (0.0-10.0); HEMATOCRIT 31.3 % (42.0-52.0); HEMOGLOBIN 10.7 g/dL (14.0-18.0); IMM GRAN% 1.1 % (0.0-0.5); LYMPH# 1.25 X1000 (1.2-3.4); LYMPH% 13.7 % (20.5-51.1); MCH 30.3 PG (27-31); MCHC 34.2 g/dL (33-37); MCV 88.7 FL (81-99); MONO# 1.01 X1000 (0.11-0.59); MONO% 11.1 % (1.7-9.3); MPV 11.5 FL (7.4-10.4); NEUT# 6.29 X1000 (1.4-6.5); NEUT% 69.2 % (42.2-75.2); PLT 372 X1000 (130-400); RBC 3.53 XMIL (4.7-6.1); RDW 12.7 % (11.5-14.5)
[2019-04-27 07:35] LABS: AGAP 11; BUN 19 mg/dL (8-22); CHLORIDE 99 mmol/L (98-107); COSMO 260; CREATININE 0.8 mg/dL (0.7-1.2); ESTIMATED GFR > 60; GLUCOSE 116 mg/dL (70-104); MAGNESIUM 1.4 mg/dL (1.5-2.7); POTASSIUM 4.3 mmol/L (3.5-5.1); SODIUM 128 mmol/L (136-145); TCO2 18 mmol/L (25-35)
--- NOTE | 2019-04-27 07:54 | EKG Report ---
Test Performed on : 04/26/2019 6:50:27 PM Test Reason : ED. NO EKG ORDER FOR MUSE Blood Pressure : / mmHG Vent. Rate : 101 BPM Atrial Rate : 101 BPM P-R Int : 130 ms QRS Dur : 076 ms QT Int : 334 ms P-R-T Axes : 026 -48 016 degrees QTc Int : 433 ms Sinus tachycardia. Left anterior fascicular block Nonspecific ST and T wave abnormality Abnormal ECG When compared with ECG of 29-MAR-2019 07:27, Nonspecific T wave abnormality now evident in Inferior leads Unconfirmed Result
[2019-04-27] MEDS: MAXIPIME 1 GM in NS 50 ML IV SCH ×2 (08:33→20:31)
[2019-04-27] MEDS: ASPIRIN PO SCH (08:34)
[2019-04-27] MEDS ORDERED: MAGNESIUM SULFATE 2 GM/S.W.I. 2 GM/50 ML IVPB IV ONE (10:07)
--- NOTE | 2019-04-27 18:12 | PROGRESS NOTE ---
DATE: 04/27/2019 SUBJECTIVE: The patient is lethargic and does not answer any questions. OBJECTIVE: Vital Signs: Temperature 97.2 degrees, blood pressure 153/67, heart rate 79, respirations 18, O2 saturation is 100% on room air. General: This is a chronically ill-appearing elderly male, lying in bed in no acute distress. Heart: S1, S2 normal. Regular rate and rhythm. Lungs: Equal air entry bilaterally. No crackles. No rales. Abdomen: Positive bowel sounds. Soft, nontender, nondistended. Extremities: No edema, no cyanosis. Neurologic: The patient is lethargic. LABORATORY DATA: Hemoglobin 10, hematocrit 31. Sodium 126, potassium 4.7, chloride 97, CO2 is 17, BUN 23, creatinine 0.8, glucose 155, magnesium 1.4. ASSESSMENT AND PLAN: 1. Metabolic encephalopathy. This is likely secondary to the patient's underlying infection. 2. Urinary tract infection. Continue on antibiotic therapy. We will follow up on the urine culture results. 3. Hypomagnesemia. We will replace the patient's magnesium. 4. Hyponatremia. We will continue with intravenous fluid hydration and monitor the sodium level closely. 5. Benign prostatic hypertrophy. Continue on Flomax. 6. Deep vein thrombosis prophylaxis. Continue with sequential compression devices. cc: Carin Cameron MD
--- NOTE | 2019-04-27 20:16 | PROGRESS NOTE ---
DATE: 04/27/2019 SUBJECTIVE: Mr. Ling reports he is feeling better. He still reports weakness. He denies problems with his Neri catheter. OBJECTIVE: Vital Signs: T 97.2, P 79, BP 153/67. Urine output was recorded in the amount of 1900 mL. General: No acute distress. Abdomen: Nontender and nondistended. : Bladder nontender to palpation. Neri catheter in place, draining straw-colored urine. PERTINENT LABS: His white cell count is 9000. Creatinine is 0.8. Of note, his urinalysis upon admission was negative for bacteria, but positive for blood, white cells. ASSESSMENT: An 89-year-old male who has undergone bipolar transurethral resection of prostate on 03/29/2019. He originally did well, but presented to clinic with urgency and difficulty urinating. His urine culture from 04/06/2019 was unremarkable. He reportedly felt weaker which led to hospitalization at [facility] followed by transfer which was followed by hospitalization at [facility] followed by rehab. He was seen by me on 04/25/2019 in clinic at which point, he reported he was feeling some better, but was still weak. His urinalysis at that time analyzed by me under microscope did not show any bacteria, but the patient, his son and I agreed to send it off for culture. As of today, it showed no growth. The one upon this admission again shows white and red cells which is consistent with indwelling Neri catheter, but no bacteria. The patient has been reportedly told that he has a "raging UTI." I re-educated the patient yet again that having white cells and red cells in his urinalysis does not constitute urinary tract infection, but rather due to have an indwelling Neri catheter. I have discussed with the patient again that I would like to have the Neri catheter removed and I think he will be able to void. He is concerned about being able to sit up or stand up and use the urinal due to his overall weakness. PLAN: 1. Keep Neri catheter to gravity drainage until patient agrees to have it removed as he feels stronger. 2. Will follow up on yet another urine culture, but suspect it will turn down attendant to be negative. 3. No urologic intervention needed at this point. I suspect his weakness could be related to his electrolyte abnormalities which appeared to be again corrected. We will be happy to follow while he is in the hospital. cc: Israel Tay MD
[2019-04-27] MEDS ORDERED: FLOMAX PO SCH (21:00)
[2019-04-28] MEDS: NS 1,000 ML IV SCH ×2 (03:15→16:29)
[2019-04-28] MEDS: HUMALOG SUBQ SCH ×4 (06:09→20:22)
[2019-04-28] MEDS: PRILOSEC PO SCH (06:10)
[2019-04-28 07:06] LABS: HEMATOCRIT 36.4 % (42.0-52.0); HEMOGLOBIN 12.6 g/dL (14.0-18.0); MCH 31.4 PG (27-31); MCHC 34.6 g/dL (33-37); MCV 90.8 FL (81-99); MPV 11.6 FL (7.4-10.4); RBC 4.01 XMIL (4.7-6.1); RDW 13.3 % (11.5-14.5); WBC 8.28 X1000 (4.8-10.8)
[2019-04-28 07:28] LABS: AGAP 11; BUN 12 mg/dL (8-22); CHLORIDE 104 mmol/L (98-107); COSMO 269; CREATININE 0.6 mg/dL (0.7-1.2); ESTIMATED GFR > 60; GLUCOSE 143 mg/dL (70-104); MAGNESIUM 1.7 mg/dL (1.5-2.7); POTASSIUM 3.8 mmol/L (3.5-5.1); SODIUM 133 mmol/L (136-145); TCO2 18 mmol/L (25-35)
[2019-04-28] MEDS: ASPIRIN PO SCH (09:18)
[2019-04-28] MEDS: MAXIPIME 1 GM in NS 50 ML IV SCH ×2 (09:18→20:22)
--- NOTE | 2019-04-28 10:33 | EKG Report ---
Test Performed on : 04/28/2019 10:16:00 AM Test Reason : elevated heart rate Blood Pressure : / mmHG Vent. Rate : 125 BPM Atrial Rate : 125 BPM P-R Int : 136 ms QRS Dur : 078 ms QT Int : 318 ms P-R-T Axes : 042 -46 114 degrees QTc Int : 458 ms Sinus tachycardia. with premature atrial complexes. Left anterior fascicular block Nonspecific ST and T wave abnormality Abnormal ECG When compared with ECG of 27-APR-2019 06:55, Vent. rate has increased BY [address] now depressed in Anterior leads Confirmed by Chilo FAN, Jaquan Garay ([id number]) on 05/02/2019 7:26:41 PM
[2019-04-28] MEDS: CYMBALTA PO SCH (11:08)
[2019-04-28] MEDS: COZAAR PO SCH (11:08)
[2019-04-28] MEDS: TOPROL XL PO SCH (11:08)
[2019-04-28] MEDS ORDERED: MAGNESIUM SULFATE 2 GM/S.W.I. 2 GM/50 ML IVPB IV ONE (13:36)
--- NOTE | 2019-04-28 16:41 | PROGRESS NOTE ---
DATE: 04/28/2019 SUBJECTIVE: The patient is awake and alert, and he has already eaten his breakfast. OBJECTIVE: Vital Signs: Temperature 97, blood pressure 134/95, heart rate 107, respirations 16. O2 sats 98% on room air. General: This is a chronically ill-appearing elderly male lying in bed in no acute distress. Heart: S1, S2 normal. Tachycardic. Lungs: Clear to auscultation bilaterally. Abdomen: Positive bowel sounds. Soft, nontender, nondistended. Extremities: No edema, no cyanosis. Neurologic: The patient is awake and alert. LABS: White blood cell count 8.2, hemoglobin 12, hematocrit 36, platelets 377,000. Sodium 133, potassium 3.8, chloride 104, CO2 18, BUN 12, creatinine 0.6, glucose 143, magnesium 1.7, phosphorus 3, calcium 8. ASSESSMENT AND PLAN: 1. Metabolic encephalopathy. Resolved. 2. Hyponatremia. Slowly improving. Continue with gentle IV fluid hydration. 3. Pre diabetes. Continue to monitor the patient's blood sugars closely. 4. BPH. Continue on Flomax. 5. Hypertension. Will restart the patient's Toprol XL and Cozaar. 6. DVT prophylaxis. Will start the patient on Lovenox. 7. Disposition. Continue with physical therapy. We will plan to remove the patient's Neri catheter tomorrow to do a voiding trial. cc: Carin Cameron MD
--- NOTE | 2019-04-28 19:13 | PROGRESS NOTE ---
DATE: 04/28/2019 SUBJECTIVE: Mr. Ling feels a lot better than he did yesterday. He is completely lucid. His family is present at bedside. OBJECTIVE: T 98.3 degrees, P 93, BP 127/96. His urine output was recorded in the amount of 2100 mL overnight.General: No acute distress. Abdomen nontender, nondistended. LABORATORY DATA: His white cell count is 8000, hematocrit 36. His sodium is 133 and creatinine is 0.6. His urine culture showed no growth for the third time in 3 weeks. ASSESSMENT: An 89-year-old male who was admitted with altered mental status. He was found to have hyponatremia. There was concern for urinary tract infection, given his white cells and red cells in his urine. I have educated the family yet again that his culture was negative and that while he has a Neri catheter, he will always have white and red cells in his urine. We discussed holding his Flomax in order to decrease the chance of him having hypotension. We discussed a voiding trial in the morning if he feels strong enough to get up and use the urinal. PLAN: 1. Discontinue Flomax. 2. Remove Neri catheter on 04/29/2019. I have discussed with the patient's family that he may have elevated residuals, and postvoid of 200 to 300 would be acceptable for him, given his very elevated residuals and retention in the past, and his heavily trabeculated, weaker bladder. The family is in agreement. cc: Israel Tay MD
[2019-04-28] MEDS: LOVENOX SUBQ SCH (20:22)
[2019-04-29] MEDS: NS 1,000 ML IV SCH ×2 (04:29→09:59)
[2019-04-29] MEDS: HUMALOG SUBQ SCH ×4 (06:04→20:12)
[2019-04-29] MEDS: PRILOSEC PO SCH (06:06)
--- NOTE | 2019-04-29 06:52 | PROVIDER DOCUMENTATION ---
This chart was entered by Gardenia Pedroza Scribe, acting as scribe for Miguel Tinajero MD. HPI-Neurological Disorder - General Chief Complaint: Altered Mental Status Stated Complaint: AMS Time Seen by Provider: 04/26/19 18:59 Source: family (son and ) Allergies/Adverse Reactions: Patient Allergies Allergy/AdvReac Type Severity Reaction Status Date / Time No Known Allergies Allergy Verified 03/22/19 14:47 Home Medications: Home Medication List Medication Instructions Recorded Confirmed Last Taken Type Duloxetine [Cymbalta] 60 mg PO QAM 03/31/17 04/26/19 03/28/19 History Metformin [Glucophage] 1,000 mg PO BID CC 03/31/17 04/26/19 03/28/19 History Omeprazole 20 mg PO QAM 03/31/17 04/26/19 03/28/19 History Losartan [Cozaar] 50 mg PO DAILY 03/22/19 04/26/19 03/28/19 History Aspirin 81 mg PO QAM #0 03/29/19 04/26/19 03/22/19 Rx Magnesium Hydroxide [Milk of 30 ml PO DAILY PRN PRN 04/26/19 04/26/19 Unknown History Magnesia] Meloxicam [Mobic] 15 mg PO DAILY 04/26/19 04/26/19 Unknown History Metoprolol Succinate [Toprol Xl] 25 mg PO DAILY 04/26/19 04/26/19 Unknown History Ondansetron Odt [Zofran 4 mg Odt] 4 mg PO Q6H PRN PRN 04/26/19 04/26/19 Unknown History - History of Present Illness-Neuro Nature of Presenting Problem: 89yom presents to ED by EMS for AMS for last 2 days that is worse today. and sons are at bedside and report pt had a TURK on March 29 and was on on home health rehab and doing well until a 2 weeks ago so they took him to [facility] and he was diagnosed with a UTI, stayed in hospital for 3 days and then released to [facility] rehab on 04/15. Son reports pt had a surgical follow up yesterday and then the AMS progressively got worse after accompanied by being hot and clammy. Onset/Duration: reports: 2 days ago Timing: reports: still present, constant, changing over time Context: reports: recent infection (UTI) Character of Altered Mental Status: reports: disoriented, confused Any recent trauma/injury?: reports: none Character of Deficits: reports: impaired speech Cognitive Baseline: alert but confused Recently seen or treated by another doctor?: Yes Review of Systems - Adult - REVIEW OF SYSTEMS - ADULT Constitutional: reports: see HPI. denies: chills, fever Eyes: reports: no symptoms reported Ears, Nose, Mouth & Throat: reports: no symptoms reported Cardiovascular: reports: no symptoms reported Respiratory: reports: no symptoms reported Gastrointestinal: reports: no symptoms reported Genitourinary: reports: no symptoms reported Musculoskeletal: reports: no symptoms reported Integumentary: reports: no symptoms reported Neurological: reports: see HPI, other (AMS) Psychiatric: reports: no symptoms reported Endocrine: reports: no symptoms reported Hematologic/Lymphatic: reports: no symptoms reported Allergic/Immunologic: reports: no symptoms reported All Other Systems: Reviewed and Negative Past History - Adult - PAST MEDICAL HISTORY-ADULT Review of Records: reports: Nursing Assessment Review, Medications Reviewed, Social history reviewed & non-contributory. Major Childhood Illnesses: reports: denies history Cardiovascular: reports: denies history Respiratory: reports: denies history Gastrointestinal: reports: denies history Obstetrical/Gynecological: reports: denies history Genitourinary: reports: denies history Musculoskeletal: reports: denies history Neurological: reports: denies history Endocrine/Immune: reports: denies history Other Conditions: reports: denies history - IMMUNIZATION STATUS Childhood Immunizations: See Nurse Assessment Flu Vaccine: See Nurse Assessment - FAMILY HISTORY Family History: reviewed, not pertinent - SOCIAL HISTORY Smoking: denies Physical Exam- Neurological - Physical Exam-Neuro Initial Vital Signs Reviewed: Yes General Appearance: other (minimal ability to answer questions). negative: anxious, combative HENMT: negative: moist mucous membranes (dry) Head Injury: no evidence of injury. negative: active bleeding, Gasca's Sign, contusions, raccoon eyes Neck: non-tender, full range of motion, supple, normal inspection. negative: Brudzinski's sign, carotid bruit Respiratory: chest non-tender, lungs clear, normal breath sounds, no pleuratic chest pain, no respiratory distress, no accessory muscle use. negative: crackles, rales, rhonchi Cardiovascular: normal peripheral pulses, no edema, no gallop, no JVD, no murmur , tachycardia. negative: regular rate, rhythm Abdominal Exam: normal bowel sounds, non tender, soft. negative: rigid, rebound, tenderness Lymphatic: no adenopathy. 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 negative: diaphoresis, jaundice Psych/Mental Status: negative: anxious, disheveled, tearful Progress - PLAN OF CARE/RESULTS Progress/Plan/Lab Results: Orders Category Date Time Status Admit - [facility] Routine AdmDCTranf 04/27/19 00:35 Active Activity - Strict Bedrest ORDERED Care 04/27/19 00:35 Active Apply Mechanical Device [QM] ORDERED Care 04/27/19 00:35 Active FSBS/Accucheck Result AC + HS Care 04/26/19 22:50 Active Intake and Output-Strict ORDERED Care 04/27/19 00:35 Active Nursing- MD Consult Request ROUTINE Care 04/27/19 00:35 Active Update & Confirm Home Medicati ROUTINE Care 04/26/19 21:41 Completed Z-Document. for Tele Applied ORDERED Care 04/27/19 00:35 Completed Physician/Provider Consults Routine Cons 04/27/19 08:00 Ordered Diabetic Diet Diet 04/27/19 00:36 Active CHEST-PORTABLE [RAD] Stat Exams 04/26/19 19:[address] HEAD W/O CONTRAST [CT] Stat Exams 04/26/19 19:20 Completed A1C HGB W EST AVG GLUCOSE [CHEM] Routine Lab 04/26/19 18:45 Completed ABG [RESP] Routine Lab 04/26/19 22:02 Completed BASIC METABOLIC PANEL [CHEM] Routine Lab 04/27/19 06:45 Completed BLOOD CULTURE [BLDCUL] Stat Lab 04/26/19 18:35 Results BMP [BASIC METABOLIC PANEL] [CHEM] Timed Lab 04/27/19 02:06 Completed CBC WITH DIFF [HEME] Routine Lab 04/27/19 06:45 Completed CBC WITH ELECTRONIC DIFF [HEME] Stat Lab 04/26/19 18:45 Completed COMPREHENSIVE METABOLIC PANEL [CHEM] Stat Lab 04/26/19 18:45 Completed LACTATE, PLASMA [CHEM] Stat Lab 04/26/19 18:45 Completed MAGNESIUM [CHEM] Routine Lab 04/27/19 06:45 Completed PROTIME WITH INR [COAG] Stat Lab 04/26/19 18:45 Completed PTT [COAG] Stat Lab 04/26/19 18:45 Completed TROPONIN T Stat Lab 04/26/19 18:45 Completed TSH Routine Lab 04/27/19 06:45 Completed URINALYSIS W/POSS RFLX CULT [URINALYSIS] Stat Lab 04/26/19 21:30 Completed URINE CULTURE [RM] Routine Lab 04/26/19 21:30 Completed 0.9% Sodium Chloride Inj [Ns] 1,000 ml Med 04/26/19 20:51 Discontinued .ROUTE As directed 0.9% Sodium Chloride Inj [Ns] 1,000 ml Med 04/26/19 20:43 Discontinued 0.9% Sodium Chloride Inj [Ns] 1,000 ml IV 999 mls/hr 0.9% Sodium Chloride Inj [Ns] 1,000 ml Med 04/27/19 00:35 Active IV 80 mls/hr 0.9% Sodium Chloride Inj [Ns] 1,000 ml Med 04/26/19 21:00 Discontinued IV 999 mls/hr 0.9% Sodium Chloride Inj [Ns] 500 ml Med 04/26/19 19:20 Discontinued IV 999 mls/hr Acetaminophen [Tylenol] Med 04/27/19 00:35 Active 650 mg PO Q6H PRN PRN Aspirin Med 04/27/19 09:00 Active 81 mg PO QAM Azithromycin 500 mg/Ns [Zithromax 500 mg/Ns] Med 04/26/19 20:28 Discontinued 500 mg in 250 ml IV NOW CefEPIME [Maxipime] 1 gm Med 04/27/19 09:00 Active 0.9% Sodium Chloride Inj [Ns] 50 ml IV Q12H CefTRIAXONE [Rocephin] 2 gm Med 04/26/19 20:28 Discontinued 0.9% Sodium Chloride Inj [Ns] 50 ml IV NOW Insulin Lispro [Humalog] Med 04/27/19 07:00 Active See Protocol SUBQ 0700,1100,1600,2100 Insulin Lispro [Humalog] Med 04/27/19 07:00 Discontinued See Protocol SUBQ 0700,1100,1600,2100 Omeprazole [Prilosec] Med 04/27/19 07:00 Active 20 mg PO DAILY@0700 Ondansetron [Zofran] Med 04/27/19 00:35 Active 4 mg IV Q4H PRN PRN Tamsulosin [Flomax] Med 04/27/19 21:00 Discontinued 0.4 mg PO QHS Telemetry [OM.EQ] Routine Oth 04/27/19 00:35 Active EKG [EKG] Routine Ther 04/27/19 08:00 Completed Transfer/Admit Order [TRANSFER] Routine Transfer 04/26/19 22:50 Completed Result Diagrams: 04/28/19 06:40 04/28/19 06:40 - REASSESSMENT Reassessment #1 Time Reassessed: 21:23 Status: improving Reassessment Comment: answering questions - EKG 1 Time of EKG reading by physician:: 18:50 EKG Read and Signed by:: Miguel Tinajero EKG Interpretation (*Must complete 3 of following elements*): Abnormal (left anterior fasicular block) Rate: 101 Rhythm: sinus tachycardia QRS: normal ST Wave: non-specific ST changes - XRAY 1 XRAY: Bilateral XRAY Study: Chest Impression: See EMR Report (IMPRESSION: No evidence of acute disease. Electronically signed by Yury Diaz 04/26/2019 8:07 PM) - CT/MRI 1 CT Study: Head Impression: See EMR Report (IMPRESSION: Chronic ischemic microvascular changes. No evidence of acute intracranial disease. Electronically signed by Yury Diaz 04/26/2019 8:15 PM) - CONSULTS/PCP/HOSPITALIST Notification #1 *Consult/PCP/Hospitalist*: Dr. Smith Time Discussed: 21:21 Consult Disposition: Admit (agreed to admit pt) Departure - Departure Date of Disposition Decision: 04/27/19 Time of Disposition Decision: 00:35 DIAGNOSIS: Altered mental status Qualifiers: Altered mental status type: stupor Qualified Code(s): R40.1 - Stupor Disposition: ADMITTED INPATIENT 09 Certified Medical Emergency: Emergent Condition: Stable - Critical Care Note This patient required my direct & personal management of CC.: No Attestation - Physician/ JACQUELINE Attestation Patient care was provided by Advanced Practice Provider:: No The physician spent face to face time with patient:: Yes Advanced Practice Provider documentation review:: Supervising physician onsite and consulted in the evaluation and care of this patient. The physician did have a face to face encounter with the patient. This chart was documented by the indicated scribe, (Gardenia Pedroza Scribe) and accurately reflects the services I performed and decisions made by me, Miguel Tinajero MD, as attested by the provider's signature.
--- NOTE | 2019-04-29 07:21 | Diag Imaging Result Doc PS360 ---
EXAM: CHEST-PORTABLE HISTORY: dyspnea TECHNIQUE: Chest single view COMPARISON: 04/26/2019 FINDINGS: The lungs are well expanded. No cardiomegaly. No pulmonary edema. No pleural effusions identified. No consolidation. There are multiple old rib fractures. 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 IMPRESSION: No acute abnormality. Electronically signed by Jian Wallace 04/29/2019 7:19 AM
[2019-04-29 08:12] LABS: AGAP 12; BUN 14 mg/dL (8-22); CALCIUM 7.9 mg/dL (8.8-10.2); CHLORIDE 102 mmol/L (98-107); COSMO 268; CREATININE 0.7 mg/dL (0.7-1.2); ESTIMATED GFR > 60; GLUCOSE 117 mg/dL (70-104); MAGNESIUM 1.9 mg/dL (1.5-2.7); PHOSPHORUS 2.8 mg/dL (2.7-4.5); POTASSIUM 3.5 mmol/L (3.5-5.1); SODIUM 133 mmol/L (136-145); TCO2 19 mmol/L (25-35)
[2019-04-29] MEDS: TOPROL XL PO SCH (09:53)
[2019-04-29] MEDS: COZAAR PO SCH (09:53)
[2019-04-29] MEDS: ASPIRIN PO SCH (09:53)
[2019-04-29] MEDS: MAXIPIME 1 GM in NS 50 ML IV SCH (09:54)
[2019-04-29] MEDS: CYMBALTA PO SCH (09:54)
--- NOTE | 2019-04-29 13:58 | PROGRESS NOTE ---
DATE: 04/29/2019 SUBJECTIVE: The patient is awake and alert. He ate his breakfast. His son is present at the bedside. OBJECTIVE: Vital Signs: Temperature 97.6 degrees, blood pressure 161/85, heart rate 71, respirations 18, O2 saturation 97% on room air. General: This is a chronically ill-appearing elderly male sitting up in bed in no acute distress. Heart: S1, S2 normal. Regular rate and rhythm. Lungs: Clear to auscultation bilaterally. Abdomen: Positive bowel sounds. Soft, nontender, nondistended. Extremities: No edema, no cyanosis. Neuro: The patient is alert and oriented x3. LAB: Reviewed. ASSESSMENT AND PLAN: 1. Metabolic encephalopathy. Resolved. 2. Hyponatremia. Stable. 3. Prediabetes. Continue on a diabetic diet. Will add Ensure to each meal. 4. Urinary retention. Improved. The patient's Neri catheter will be removed today. Urology is following. 5. Hypertension controlled. Continue on Cozaar and Toprol-XL. 6. Gastroesophageal reflux disease. Continue on Prilosec. 7. Deep vein thrombosis prophylaxis. Continue on Lovenox. 8. Continue with physical therapy. 9. Disposition. Will plan to discharge the patient to rehab on Wednesday. cc: Carin Cameron MD
[2019-04-29] MEDS: LOVENOX SUBQ SCH (20:11)
[2019-04-30] MEDS: HUMALOG SUBQ SCH ×4 (05:59→20:55)
[2019-04-30] MEDS: PRILOSEC PO SCH (05:59)
[2019-04-30 07:11] LABS: HEMATOCRIT 34.4 % (42.0-52.0); HEMOGLOBIN 11.7 g/dL (14.0-18.0); MCH 31.5 PG (27-31); MCV 92.5 FL (81-99); MPV 11.7 FL (7.4-10.4); RBC 3.72 XMIL (4.7-6.1); RDW 13.3 % (11.5-14.5); WBC 8.38 X1000 (4.8-10.8)
[2019-04-30 07:27] LABS: AGAP 11; BUN 12 mg/dL (8-22); CALCIUM 8.1 mg/dL (8.8-10.2); CHLORIDE 104 mmol/L (98-107); COSMO 273; CREATININE 0.6 mg/dL (0.7-1.2); ESTIMATED GFR > 60; GLUCOSE 129 mg/dL (70-104); POTASSIUM 3.8 mmol/L (3.5-5.1); SODIUM 136 mmol/L (136-145); TCO2 21 mmol/L (25-35)
[2019-04-30] MEDS: ASPIRIN PO SCH (09:57)
[2019-04-30] MEDS: TOPROL XL PO SCH (09:57)
[2019-04-30] MEDS: COZAAR PO SCH (09:58)
[2019-04-30] MEDS ORDERED: SENOKOT PO ONE (13:47)
[2019-04-30] MEDS ORDERED: LACTULOSE PO SCH (14:00)
--- NOTE | 2019-04-30 14:11 | PROGRESS NOTE ---
DATE: 04/30/2019 SUBJECTIVE: The patient is resting comfortably in bed. No acute events noted overnight. OBJECTIVE: Vital Signs: Temperature 96.9 degrees, blood pressure 163/94, heart rate 80, respirations 18, O2 saturation is 98% on room air. General: This is a chronically ill-appearing, elderly male lying in bed in no acute distress. Heart: S1, S2 normal. Regular rate and rhythm. Lungs: Clear to auscultation bilaterally. Abdomen: Positive bowel sounds. Soft, nontender, nondistended. Extremities: No edema. No cyanosis. Neurologic: The patient is alert and oriented. Labs: White blood cell count 8.3, hemoglobin 11, hematocrit 34, platelets 312,000. Sodium 136, potassium 3.8, BUN 12, creatinine 0.6, glucose 129, calcium 8.1. ASSESSMENT AND PLAN: 1. Metabolic encephalopathy. Resolved. 2. Hyponatremia. Resolved. 3. Constipation. We will start the patient on scheduled laxative therapy. 4. Urinary retention. The patient's Neri catheter was removed yesterday. Continue to monitor closely. 5. Hypertension. Continue on Cozaar and Toprol-XL. 6. Gastroesophageal reflux disease. Continue on Prilosec. 7. Deep vein thrombosis prophylaxis. Continue on Lovenox. 8. Diabetes mellitus. Continue on metformin. 9. Disposition. The patient will be discharged to [facility] in [place] tomorrow. cc: MD POOL Paula
[2019-04-30] MEDS: LOVENOX SUBQ SCH (20:55)
[2019-04-30] MEDS ORDERED: SENOKOT PO SCH (21:00)
[2019-05-01] MEDS: HUMALOG SUBQ SCH ×5 (06:01→20:36)
[2019-05-01] MEDS: PRILOSEC PO SCH (06:06)
--- NOTE | 2019-05-01 07:55 | DISCHARGE SUMMARY ---
ADMISSION DATE: 04/26/2019 DISCHARGE DATE: FINAL DISCHARGE DIAGNOSES: 1. Metabolic encephalopathy. 2. Hyponatremia. 3. Urinary retention. 4. Constipation. 5. Hypertension. 6. Gastroesophageal reflux disease. 7. Diabetes mellitus type 2. CONSULTATIONS: Consultation with Dr. Tay. HOSPITAL COURSE: Mr. Ling is an 89-year-old male who has a history of diabetes and hypertension who presented to the ER with confusion. On admission, the patient was noted to have a sodium of 123. The patient was admitted to the hospitalist service and started on gentle IV fluid hydration. There was also concern about a urinary tract infection and so the patient was also started on antibiotic therapy. Also, the patient was noted to have a plasma lactate of 5.7. With the initiation of fluids and antibiotics, the patient's mental status improved and returned to baseline. The patient was noted to have urinary retention and so urology was consulted. A Neri catheter was placed. The patient responded well to therapy. The patient's sodium slowly improved over the course of the hospitalization. Ultimately, the urine culture showed no growth and antibiotic therapy was discontinued. The patient was also seen by physical therapy. The patient continued to improve clinically and is currently stable for discharge to inpatient rehab. DISCHARGE MEDICATIONS: 1. Omeprazole 20 mg oral every morning. 2. Metformin 1000 mg oral twice a day. 3. Cozaar 50 mg oral daily. 4. Aspirin 81 mg oral every morning. 5. Milk of magnesia 30 mL oral daily p.r.n. 6. Toprol-XL 25 mg oral daily. 7. Zofran 4 mg oral every 6 hours p.r.n. for nausea. DISCHARGE DIET: An 1800, ADA diet. ACTIVITY: As tolerated. FOLLOWUP INSTRUCTIONS: The patient will need to follow up with his primary care physician upon discharge from the inpatient rehabilitation center. The patient will also follow up with Dr. Tay as scheduled by his clinic. cc: Carin Cameron MD
[2019-05-01 08:21] LABS: AGAP 12; BUN 16 mg/dL (8-22); CALCIUM 8.5 mg/dL (8.8-10.2); CHLORIDE 102 mmol/L (98-107); COSMO 276; CREATININE 0.7 mg/dL (0.7-1.2); ESTIMATED GFR > 60; GLUCOSE 144 mg/dL (70-104); POTASSIUM 3.5 mmol/L (3.5-5.1); SODIUM 136 mmol/L (136-145); TCO2 22 mmol/L (25-35)
[2019-05-01] MEDS: TYLENOL PO PRN (09:23)
[2019-05-01] MEDS: TOPROL XL PO SCH (09:23)
[2019-05-01] MEDS: ASPIRIN PO SCH (09:24)
[2019-05-01] MEDS: COZAAR PO SCH (09:24)
[2019-05-01] MEDS ORDERED: CYMBALTA PO ONE (10:43)
[2019-05-01] MEDS: NS 1,000 ML IV SCH (12:31)
[2019-05-01] MEDS: MEGACE LIQUID PO SCH ×2 (17:45→23:31)
--- NOTE | 2019-05-01 20:08 | PROGRESS NOTE ---
DATE: 05/01/2019 SUBJECTIVE: The patient was noted to have had a rough night last night, he did not sleep, and so this morning he is now lethargic and did not eat his breakfast. OBJECTIVE: Vital signs: Temperature is 97.6, blood pressure 152/95, heart rate 83, respirations 22, O2 saturation is 98% on room air. General: This is a chronically ill appearing elderly male lying in bed in no acute distress. Heart: S1, S2 normal. Regular rate and rhythm. Lungs: Equal air entry bilaterally. No wheezing, no rales, no rhonchi. Abdomen: Positive bowel sounds. Soft, nontender and nondistended. Extremities: No edema, no cyanosis, no calf tenderness. Neurologic: The patient is lethargic. He will awaken when his name is called. DIAGNOSTIC DATA: Sodium 136, potassium 3.5, chloride 102, CO2 is 22, BUN is 16, creatinine 0.7, glucose 144. ASSESSMENT AND PLAN: 1. Delirium. The patient did not sleep last night. We will monitor for improvement. We will start the patient back on some gentle IV fluid hydration and reassess. 2. Urinary retention. The nursing staff reports that the patient had around 300 mL of urine as a postvoid residual. We will continue to monitor closely. We will also check another urinalysis and urine culture. 3. Hyponatremia, resolved. 4. Hypertension. Continue on Cozaar and Toprol-XL. 5. Diabetes mellitus type 2. Continue on sliding scale insulin. We will also add Glucerna with each meal. 6. Deconditioning. Continue with physical therapy. 7. Disposition. Hopefully the patient will be more awake tomorrow and able to transfer to [facility] in [place]. The patient's son was updated about the patient's condition this morning at the bedside. cc: Carin Cameron MD
[2019-05-01] MEDS: LOVENOX SUBQ SCH (20:40)
[2019-05-01 23:47] LABS: URINE SOURCE CATH
[2019-05-01 23:58] LABS: BILIRUBIN URINE NEGATIVE (NEGATIVE); BLOOD URINE LARGE (NEGATIVE); CLARITY TURBID (CLEAR); COLOR RED; GLUCOSE URINE NEGATIVE (NEGATIVE); KETONE URINE NEGATIVE (NEGATIVE); LEUKOCYTES URINE SMALL (NEGATIVE); NITRITE URINE NEGATIVE (NEGATIVE); PH URINE 6.5; PROTEIN URINE 100 mg/dL (NEGATIVE); SP GRAVITY URINE 1.015; URINE BACTERIA NEGATIVE /HFP; URINE EPITHELIAL CELLS <10 /HPF (<10); URINE RBC TNTC /HPF (<10); URINE WBC <10 /HPF (<10); UROBILINOGEN URINE 0.2 EU/dL (0.2-1.0)
[2019-05-01 23:59] LABS: URINE CAST NONE SEEN /LPF; URINE CRYSTAL NONE SEEN /HPF; URINE YEAST NONE SEEN /HPF
[2019-05-02] MEDS: NS 1,000 ML IV SCH ×2 (00:30→13:34)
[2019-05-02] MEDS: HUMALOG SUBQ SCH ×4 (06:01→23:00)
[2019-05-02] MEDS: TYLENOL PO PRN ×2 (06:02→20:03)
[2019-05-02] MEDS: PRILOSEC PO SCH (06:02)
[2019-05-02 07:27] LABS: HEMOGLOBIN 11.4 g/dL (14.0-18.0); MCH 31.8 PG (27-31); MCHC 33.5 g/dL (33-37); MPV 12.1 FL (7.4-10.4); RBC 3.58 XMIL (4.7-6.1); RDW 13.6 % (11.5-14.5); WBC 9.18 X1000 (4.8-10.8)
[2019-05-02 07:48] LABS: AGAP 15; BUN 15 mg/dL (8-22); CALCIUM 8.5 mg/dL (8.8-10.2); CHLORIDE 105 mmol/L (98-107); COSMO 276; CREATININE 0.6 mg/dL (0.7-1.2); ESTIMATED GFR > 60; GLUCOSE 148 mg/dL (70-104); POTASSIUM 3.8 mmol/L (3.5-5.1); SODIUM 136 mmol/L (136-145); TCO2 16 mmol/L (25-35)
[2019-05-02] MEDS: TOPROL XL PO SCH (08:36)
[2019-05-02] MEDS: MEGACE LIQUID PO SCH (08:37)
[2019-05-02] MEDS: ASPIRIN PO SCH (08:38)
[2019-05-02] MEDS: COZAAR PO SCH (08:38)
[2019-05-02] MEDS: LOVENOX SUBQ SCH (20:04)
[2019-05-03] MEDS: NS 1,000 ML IV SCH ×2 (03:11→17:21)
[2019-05-03] MEDS: TYLENOL PO PRN ×3 (04:56→22:25)
[2019-05-03] MEDS: PRILOSEC PO SCH (06:33)
[2019-05-03] MEDS: HUMALOG SUBQ SCH ×4 (06:34→21:23)
[2019-05-03] MEDS: COZAAR PO SCH (09:26)
[2019-05-03] MEDS: ASPIRIN PO SCH (09:26)
[2019-05-03] MEDS: TOPROL XL PO SCH (09:27)
--- NOTE | 2019-05-03 13:11 | PROGRESS NOTE ---
DATE: 05/03/2019 SUBJECTIVE: He had a little better night. He slept about 4 hours, but his son was concerned he does appear to be in some pain, so I think we are going to have to try something like tramadol. He appears comfortable at the present time. PHYSICAL EXAMINATION: Vital Signs: He remains afebrile, temperature 98.3, pulse 85, respirations 17, blood pressure 157/94. HEENT: Pupils are equal and round. Lungs: Lungs are clear in all lung aleman. Cardiovascular: Regular rhythm and rate without murmur or S3. LABORATORY: Output was 1200 mL. Blood sugar 194, 146, 254. ASSESSMENT AND PLAN: 1. Delirium and underlying dementia. This seems to be a little better. He slept a little better. I think his days and nights are confused right now, so hopefully a better night. We stopped the Megace. I am going to try for pain some tramadol. 2. Urinary retention. The patient has had around 300 mL of urine postvoid residual, but seems to be using the condom catheter without any problem. 3. Hyponatremia, which resolved. 4. Hypertension. Blood pressures appear well controlled. 5. Diabetes mellitus type 2. Continue following sugars with sliding scale. 6. Deconditioning. We will continue physical therapy. 7. Disposition. Hope to get him back to [facility]. I would like him to have a little better night and less delirium. He seems to be heading in the right direction. We will see how he does on the tramadol. 8. Review of his orders: I do not see any change at this point. cc: Jaquan Woo MD
--- NOTE | 2019-05-03 14:29 | PROGRESS NOTE ---
DATE: 05/02/2019 SUBJECTIVE: The patient was admitted on 04/26/2019. His doctor is Dr. Erich Pedroza. He came in with altered mental status. An 89-year-old very pleasantly confused, had a long-standing history of benign prostatic hypertrophy. Underwent TURP per Dr. Tay, followed by Dr. Tay in his office. This seemed to be going well. He went to [facility]. After being in Dr. Tay's office, he became altered mental status and some hallucinations and auditory speaking to people who were not there so was sent to the hospital. He was oriented to person and time, disoriented to place, and situation, very pleasantly confused. PAST MEDICAL HISTORY: 1. Hypertension. 2. Benign prostatic hypertrophy. 3. Coronary artery disease. 4. Diabetes. 5. Gastroesophageal reflux disease. 6. Neuropathy. PAST SURGICAL HISTORY: Shoulder surgery, elbow surgery, back surgery, and TURP. ASSESSMENT AND PLAN: Encephalopathy. I feel like it is mainly metabolic. He had some hyponatremia and had some volume depletion when he came in. Son stated that he still had some confusion last night. Overall, he seems to be doing better. PHYSICAL EXAMINATION: On exam today, temperature 98, pulse 93, respirations 22, and blood pressure 153/90. HEENT: Pupils are equal and round. Lungs: Clear in all lung aleman. Cardiovascular: Regular rhythm and rate without murmur or S3. Abdomen: Soft. Skin: Warm and dry. Pelvic: He has a condom catheter on. Urine output was about 600 mL with a recorded. ASSESSMENT AND PLAN: 1. Delirium. The patient did not sleep much during the night, and still having some confusion. 2. Urinary retention. He had about 300 mL of postvoid residual. He has a condom catheter on. 3. Hyponatremia, which is resolved. 4. Hypertension on Cozaar and Toprol-XL. 5. Diabetes mellitus type 2. Sugars under good control. 6. Deconditioning and weakness. He would like to continue physical therapy so we will keep him again another night, and see if we can get rid of any medications that might be contributing to his confusion. I am going to stop the Cymbalta again. I am going to stop the Megace. Really, he is not on any other medications that are suspicious for contributing to delirium. We will see how he does tonight. LABORATORY DATA: Review of his lab, white count is normal 9180, hematocrit is 34, and platelet count is 256,000. Sodium 136, potassium 3.8, chloride 105, BUN 15, and creatinine 0.6. Blood sugars 137, 154, 148, and 263. cc: Jaquan Woo MD
[2019-05-03] MEDS: LOVENOX SUBQ SCH (20:16)
[2019-05-03] MEDS: ULTRAM PO PRN (20:17)
[2019-05-04] MEDS: ULTRAM PO PRN ×2 (03:31→09:16)
[2019-05-04] MEDS: TYLENOL PO PRN (06:14)
[2019-05-04] MEDS: HUMALOG SUBQ SCH ×2 (06:14→11:52)
[2019-05-04] MEDS: PRILOSEC PO SCH (06:14)
[2019-05-04] MEDS: NS 1,000 ML IV SCH (06:14)
[2019-05-04] MEDS: ASPIRIN PO SCH (09:16)
[2019-05-04] MEDS: TOPROL XL PO SCH (09:16)
[2019-05-04] MEDS: COZAAR PO SCH (09:16)
--- NOTE | 2019-05-04 10:16 | PROGRESS NOTE ---
DATE: 05/04/2019 SUBJECTIVE: He apparently had a little better night, but still was restless and still has some confusion, not sure where he is. He is oriented to person. He looks comfortable, breathing comfortable. OBJECTIVE: Vital signs: Temperature 97.3 degrees, pulse 81, respirations 20, blood pressure 151/100. HEENT: Pupils are equal round. Lungs: Clear in all lung aleman. Cardiovascular: Regular rhythm and rate without murmur or S3. LABORATORY DATA: Blood sugar 146, 160 and 122. His lab from the 18th reviewed and his lab throughout the hospitalization. Hematocrit 34, hemoglobin 11, white count 9180, platelet count 256,000. Blood sugars 254, 160, 156, 122. His lactate level was a little elevated when he came in. Albumin is 3.4. ASSESSMENT AND PLAN: I am going to go ahead and check B12 and folate. Blood sugars appear well maintained. We are using tramadol for pain and it seems like it is helping some. I would like to get him back to [facility]. We will check B12 and folate, T4 and TSH. We will continue physical therapy and see how we do. cc: Jaquan Woo MD
--- NOTE | 2019-05-04 10:59 | DISCHARGE SUMMARY ---
ADMISSION DATE: 04/26/2019 DISCHARGE DATE: 05/04/2019 ADDENDUM: Please refer to previous discharge summary for final diagnosis and hospital course. This is an addendum on a discharge summary as the patient was going to be discharged back to rehab on 05/01/2019, but started having some difficulty sleeping at night and was lethargic during the daytime. Made some adjustments to medications, added back his Tramadol for Spinal stenosis and is sleeping better at night. Physical therapy has continued to follow the patient. He is oriented to person, is comfortable, but has confusion to place and time, but we will now discharge him in stable condition back to rehab. Please refer to previous discharge summary for a list of active discharge medications. TIME SPENT: 33 minute discharge. Dictated by JOVAN Nelson for Jaquan Woo MD cc: MD Jeana Pink CRNP Allen J. Schmidt, MD MTDD
[2019-05-04 12:54] VITALS: BP 153/76
== END 2019-05-04 14:35 | DRG 640 ==
LOC: SUPCPDRO → ED 18:02 → SUATTDRO 23:28 → 3N 23:28
PROVIDERS: ATTEND Emergency Medicine
CPT/HCPCS: 70450; 71010; 71045; 80048; 80053; 81001; 82805; 82948; 83036; 83605; 83735; 84100; 84443; 84484; 85025; 85027; 85610; 85730; 87040; 87088; 93005; 93010; 96361; 96365; 96366; 96368; 97110; 97116; 97162; 97530; 99285; A9270; J0456; J0692; J0696; J1650; J1815; J3475; J7030; J7040; S0179; XXXXX